=== PATIENT | male | born 1990 | race African-American/Black ===

== ENCOUNTER 2021-07-10 09:34 | Emergency (ER) | payer OTHER ==
[~2021-07-10] VITALS: Ht 180.3 cm; Wt 70.8 kg
[2021-07-10 10:41] VITALS: BP 111/75
== END 2021-07-10 10:42 | disposition home or self-care (01) ==
LOC: ER 09:34
DX: M79.641 Pain in right hand (principal); M79.671 Pain in right foot; F17.210 Nicotine dependence, cigarettes, uncomplicated